=== PATIENT | male | born 1990 | race Caucasian/White ===

== ENCOUNTER 2018-02-05 08:45 | Inpatient (IN) ==
[2018-02-05] MEDS ORDERED: lamoTRIgine 100 MG TABLET PO SCH (11:00)
[2018-02-05] MEDS ORDERED: (Vilazodone Hcl [Viibryd] 40 MG) PO SCH (11:00)
--- NOTE | 2018-02-05 11:04 | Spine - History & Physical Rep ---
Date of Encounter: 02/05/18 Time of Encounter: 11:00 Assessment and Plan (1) Spinal cord compression Current visit: Yes Status: Chronic On exam he communicates clearly and satisfactorily and appears to understand questioning and requests. He is here with his machine ceramic coater whose assisting in the medical history. Afebrile vital signs stable. He fires all upper extremity motor groups with good strength. He has hand deformity on the left. He has a positive Krystle sign on the right. He has a positive inverted radial reflex. He has some weakness in dorsiflexion bilaterally. There is also some quadriceps and hamstring weakness which is 4 on a motor scale. He has no clonus. Lungs are clear. Cardiovascular regular rate and rhythm. Abdomen soft nontender nondistended. There is no clubbing cyanosis or edema. MRI of the cervical spine dated 01/30/2018 reveals multilevel degenerative changes and disc desiccation. There is severe stenosis in part due to disc osteophyte complexes at C5-6 and C6-7. This is causing spinal cord compression with essentially complete myelographic block. Impression: 1) spinal cord compression 2) severe cervical stenosis 3) cervical myelopathy 4) impaired gait Plan: Due to his progressive functional decline and neurologic abnormalities as well as likelihood for neurologic progression I find it reasonable to consider surgery in the form of a anterior cervical decompression and fusion C5-C7. Patient will be admitted due to his rapid functional decline, medically optimized, and we will proceed with surgical decompression. Risks benefits possible complications and alternatives were discussed and the patient would like to proceed. (2) Cervical stenosis of spinal canal Current visit: Yes Status: Chronic (3) Cervical myelopathy Current visit: Yes Status: Chronic (4) Gait disturbance Current visit: Yes Status: Chronic History of Present Illness Chief complaint: "falling, cant walk very well" HPI: Mr. John is a 27 year old male who complains of a one-month history of progressive weakness and increasing frequency of falls. He has a history of COPD but was highly functional working as a job in getting around well. He is now progress to frequent falls and is using a wheelchair to mobilize. His caretakers noticed his worsening function and brought him in for evaluation to sports medicine. He had an MRI which showed spinal cord compression and severe stenosis and was referred to spinal surgery for definitive management. He is here with his machine ceramic coater who is concerned about his functional decline. Patient also complains of pain in the bilateral upper extremities and numbness in his hands bilaterally. He denies any fevers or chills. Past Med Surg Social Fam HX - Past Medical History Medical history: seizures Additional medical history: CP - Past Surgical History Additional surgical history: eye surgery - Social History Smoking Status: Current every day smoker Packs per day: 1 Smokeless Tobacco Status: Yes (vape) Alcohol use: none Drug use: none Medications and Allergies Baclofen 20 mg PO TID 02/05/18 [History] Meloxicam [Mobic] 15 mg PO DAILY 02/05/18 [History] Vilazodone HCl [Viibryd] 40 mg PO DAILY 02/05/18 [History] lamoTRIgine [Lamotrigine] 200 mg PO DAILY 02/05/18 [History] Allergy/AdvReac Type Severity Reaction Status Date / Time No Known Allergies Allergy Verified 02/05/18 09:54 Results - Labs Labs: All other labs normal.
[2018-02-05 11:43] LABS: Basophils % 0.2 %; Eosinophils # 0.1 K/mcL (0.0-0.6); Eosinophils % 0.7 %; Hematocrit 41.2 % (37.5-50.1); Hemoglobin 13.6 g/dL (12.9-16.9); Immature Granulocytes % 0.5 % (0-4); Lymphocytes # 2.6 K/mcL (0.6-4.6); Lymphocytes % 23.6 %; Mean Corpuscular Hemoglobin 29.8 pg (28.0-33.3); Mean Corpuscular Volume 90.4 fL (83.0-100.0); Mean Platelet Volume 11.8 fL (9.4-12.4); Monocytes # 0.5 K/mcL (0.0-1.3); Monocytes % 4.9 %; Neutrophils # 7.7 K/mcL (1.6-8.9); Platelet Count 213 K/mcL (140-400); Red Blood Count 4.56 M/mcL (4.19-5.50); Red Cell Distribution Width 13.2 % (11.5-14.5); Segmented Neutrophils % 70.1 %
[2018-02-05 11:53] LABS: Prothrombin Time 11.1 Seconds (9.4-12.1)
[2018-02-05 11:58] LABS: BUN/Creatinine Ratio 24 (6-26); Blood Urea Nitrogen 19 mg/dL (6-20); Calcium 8.8 mg/dL (8.6-10.3); Carbon Dioxide 27 mEq/L (23-29); Chloride 106 mEq/L (98-107); Glucose 151 mg/dL (70-105); Osmolality,Calculated 297 (280-300); Potassium 3.3 mEq/L (3.5-5.1); Sodium 141 mEq/L (136-145); eGFR For Non-African Americans > 60 (> 60)
[2018-02-05] MEDS: Baclofen 10 MG TABLET PO SCH ×3 (12:35→20:44)
[2018-02-05] MEDS: lamoTRIgine 100 MG TABLET PO SCH (20:44)
[2018-02-05] MEDS: (Vilazodone Hcl [Viibryd] 40 MG) PO SCH (20:53)
[2018-02-06] MEDS: Baclofen 10 MG TABLET PO SCH ×3 (07:58→21:49)
--- NOTE | 2018-02-06 11:00 | Orthopedics Progress Note ---
Date of Encounter: 02/06/18 Time of Encounter: 11:30 - Assessment and Plan (1) Spinal cord compression Current Visit: Yes Status: Chronic (2) Cervical myelopathy Current Visit: Yes Status: Chronic (3) Cervical stenosis of spinal canal Current Visit: Yes Status: Chronic (4) Gait disturbance Current Visit: Yes Status: Chronic Subjective Principal diagnosis: difficulty walking Interval history: Patient present and preparing for cervical surgery tomorrow with Dr. Zuniga. Patient denies any new complaints or concerns regarding surgery. Resting comfortably in bed sleeping. Easily awoken. A&Ox3. Difficulty with coordination in all limbs. Pulses intact all limbs (radial and posterior tibial pulses). Sensation intact. NPO at midnight. Surgery tomorrow with Dr. Zuniga. Laboratory Last Values WBC 11.0 K/mcL (4.3-11.1) 02/05/18 11:22 RBC 4.56 M/mcL (4.19-5.50) 02/05/18 11:22 Hgb 13.6 g/dL (12.9-16.9) 02/05/18 11:22 Hct 41.2 % (37.5-50.1) 02/05/18 11:22 MCV 90.4 fL (83.0-100.0) 02/05/18 11:22 MCH 29.8 pg (28.0-33.3) 02/05/18 11:22 MCHC 33.0 g/dL (31.6-35.5) 02/05/18 11:22 RDW 13.2 % (11.5-14.5) 02/05/18 11:22 Plt Count 213 K/mcL (140-400) 02/05/18 11:22 MPV 11.8 fL (9.4-12.4) 02/05/18 11:22 Immature Gran % 0.5 % (0-4) 02/05/18 11:22 Seg Neutrophils % 70.1 % 02/05/18 11:22 Lymphocytes % 23.6 % 02/05/18 11:22 Monocytes % 4.9 % 02/05/18 11:22 Eosinophils % 0.7 % 02/05/18 11:22 Basophils % 0.2 % 02/05/18 11:22 Neutrophils # 7.7 K/mcL (1.6-8.9) 02/05/18 11:22 Lymphocytes # 2.6 K/mcL (0.6-4.6) 02/05/18 11:22 Monocytes # 0.5 K/mcL (0.0-1.3) 02/05/18 11:22 Eosinophils # 0.1 K/mcL (0.0-0.6) 02/05/18 11:22 Basophils # 0.0 K/mcL (0.0-0.2) 02/05/18 11:22 PT 11.1 Seconds (9.4-12.1) 02/05/18 11:22 INR 1.0 02/05/18 11:22 APTT 33.6 Seconds (26.0-36.0) 02/05/18 11:22 Sodium 141 mEq/L (136-145) 02/05/18 11:22 Potassium 3.3 mEq/L (3.5-5.1) L 02/05/18 11:22 Chloride 106 mEq/L (98-107) 02/05/18 11:22 Carbon Dioxide 27 mEq/L (23-29) 02/05/18 11:22 BUN 19 mg/dL (6-20) 02/05/18 11:22 Creatinine 0.78 mg/dL (0.70-1.30) 02/05/18 11:22 Est GFR ( Amer) > 60 (> 60) 02/05/18 11:22 Est GFR (Non-Af Amer) > 60 (> 60) 02/05/18 11:22 BUN/Creatinine Ratio 24 (6-26) 02/05/18 11:22 Glucose 151 mg/dL (70-105) H 02/05/18 11:22 Calculated Osmolality 297 (280-300) 02/05/18 11:22 Calcium 8.8 mg/dL (8.6-10.3) 02/05/18 11:22 Vital Signs (72 hours) 02/05/18 10:18 02/05/18 21:11 02/05/18 23:23 Temperature 98.1 F 98.1 F 98.0 F Pulse Rate 61 57 55 Respiratory Rate 14 15 15 Blood Pressure 107/69 93/52 98/62 O2 Sat by Pulse Oximetry 96 96 96 02/06/18 04:12 02/06/18 07:21 02/06/18 11:49 Temperature 98.2 F 97.8 F 97.7 F Pulse Rate 61 53 51 Respiratory Rate 16 16 16 Blood Pressure 106/66 96/62 93/51 O2 Sat by Pulse Oximetry 96 92 97 02/06/18 16:25 Temperature 98.1 F Pulse Rate 51 Respiratory Rate 16 Blood Pressure 99/60 O2 Sat by Pulse Oximetry 94 Objective Vital signs: Vital Signs Temp Pulse Resp BP Pulse Ox 02/06/18 07:21 97.8 F 53 16 96/62 92 02/06/18 04:12 98.2 F 61 16 106/66 96 02/05/18 23:23 98.0 F 55 15 98/62 96 02/05/18 21:11 98.1 F 57 15 93/52 96 Intake and Output 02/05/18 02/06/18 02/06/18 23:59 07:59 15:59 Intake Total 290 / 290 240 / 240 Output Total 0 / 0 Balance 290 / 290 240 / 240 Intake: Oral 290 / 290 240 / 240 Output: Urine 0 / 0 Other: Meal Dinner Percent of Meal Consumed 85% # Voids 1 Weight 79.1 kg - Labs CBC & BMP: 02/05/18 11:22 02/05/18 11:22 Labs: Abnormal lab results Potassium 3.3 mEq/L (3.5-5.1) L 02/05/18 11:22 Glucose 151 mg/dL (70-105) H 02/05/18 11:22 Consult Discharge Plan - Plan Referrals: NONE,PCP [Primary Care Provider] -
--- NOTE | 2018-02-06 20:46 | Anesthesia Evaluation PreOp ---
Date of Encounter: 02/06/18 Time of Encounter: 21:33 - Past History Planned Operation: ACDF C5-C7 Cardiac History: Denies any Significant Hx Pulmonary History: Smoker, COPD (MILD) INTAKE ASSESSOR History: Seizures, Paresis (PROGRESSIVE RUSS LE WEAKNESS OVER LAST MONTH. PREVIOUSLY AMBULATORY, AND EMPLOYED AT [employer]), Other (CEREBRAL PALSY) Other Medical History: Denies Any Significant HX Anesthesia History: Past Anesthesia, Problems (WAKES UP VIOLENT) Alcohol Use: none Drug use: none Medications and Allergies Baclofen 20 mg PO TID 02/05/18 [History] Meloxicam [Mobic] 15 mg PO DAILY 02/05/18 [History] Vilazodone HCl [Viibryd] 40 mg PO DAILY 02/05/18 [History] lamoTRIgine [Lamotrigine] 200 mg PO DAILY 02/05/18 [History] Allergy/AdvReac Type Severity Reaction Status Date / Time No Known Allergies Allergy Verified 02/05/18 09:54 - Meds/Allergy Pre-op Review Medications Reviewed: Yes Allergies Reviewed: Yes Beta Blockers on Current Med List: No Anesthesia Results - Labs 02/05/18 11:22 02/05/18 11:22 Laboratory Tests 02/05/18 02/05/18 02/05/18 11:22 11:22 11:22 PT 11.1 INR 1.0 APTT 33.6 Est GFR (Non-Af Amer) > 60 Calcium 8.8 - Imaging Additional studies: MRI CERVICAL SPINE 01/30/2018: 1. Severe spinal canal stenosis at C5-6 secondary to a focal 5 mm right paracentral disc protrusion. There is severe right neural foraminal narrowing as well. 2. Severe spinal canal stenosis at C6-7 secondary to a focal 4 mm central disc protrusion. 3. Intramedullary signal abnormality within the cervical spinal cord at C5-6 and C6-7 likely due to compressive edema. Neurosurgical consultation is suggested. Anesthesia Exam Vital Signs/O2 Sat, Most Current Temp Pulse Resp BP Pulse Ox 98.5 F 61 16 102/68 96 02/06/18 19:42 02/06/18 19:42 02/06/18 19:42 02/06/18 19:42 02/06/18 19:42 Weight: 79 KG - BMI 29 NPO (# of Hours): NPO >MN - HEENT Mallampati: I (HIGH ARCH HARD PALATE, FULL NECK EXTENSION WITHOUT SYMPTOMS) Teeth: Missing Oral Opening: Greater than 3 - INTAKE ASSESSOR LOC: Oriented INTAKE ASSESSOR Motor: Deficit RUE (4/5), Deficit LUE (3/5), Deficit RLE (4/5), Deficit LLE (3/5) - Cardiac Rhythm: Regular - Pulmonary Breath Sounds: bilateral Clear Respiratory Effort: Symmetrical Anesthesia Assess/Plan ASA Score: 3 Anesthetic Plan: General Monitoring Plan: Standard Monitors Recovery Plan: PACU Anes Supervising Prov Stmt: HYPOKALEMIA - ORDERED PO REPLACEMENT AND RECHECK K IN AM Patient informed and consented. Risks, benefits, and alternatives discussed. Patient wishes to proceed.
[2018-02-06] MEDS: lamoTRIgine 100 MG TABLET PO SCH (21:49)
[2018-02-06] MEDS: (Vilazodone Hcl [Viibryd] 40 MG) PO SCH (21:51)
[2018-02-07 07:26] LABS: Hematocrit 41.4 % (37.5-50.1); Hemoglobin 13.6 g/dL (12.9-16.9); Mean Corpuscular HGB Conc 32.9 g/dL (31.6-35.5); Mean Corpuscular Hemoglobin 29.5 pg (28.0-33.3); Mean Corpuscular Volume 89.8 fL (83.0-100.0); Mean Platelet Volume 11.8 fL (9.4-12.4); Platelet Count 188 K/mcL (140-400); Red Blood Count 4.61 M/mcL (4.19-5.50); Red Cell Distribution Width 12.8 % (11.5-14.5)
[2018-02-07 07:42] LABS: BUN/Creatinine Ratio 22 (6-26); Blood Urea Nitrogen 18 mg/dL (6-20); Carbon Dioxide 26 mEq/L (23-29); Chloride 108 mEq/L (98-107); Glucose 99 mg/dL (70-105); Osmolality,Calculated 292 (280-300); Sodium 140 mEq/L (136-145); eGFR For Non-African Americans > 60 (> 60)
[2018-02-07] MEDS: Baclofen 10 MG TABLET PO SCH ×2 (08:10→18:33)
[2018-02-07] MEDS ORDERED: *HR* Midazolam HCl 2 MG/2 ML VIAL ONE (09:21)
[2018-02-07] MEDS ORDERED: *HR* FentaNYL (PF) 100 MCG/2 ML VIAL ONE (09:21)
[2018-02-07] MEDS ORDERED: *HR* Propofol 200 MG/20 ML VIAL IVP ONE (09:21)
[2018-02-07] MEDS ORDERED: Acetaminophen IV 1,000 MG/100 ML INFUS..BTL ONE (09:41)
[2018-02-07] MEDS ORDERED: *HR* Remifentanil 1 MG VIAL IVP ONE (09:45)
[2018-02-07] MEDS ORDERED: Bacitracin 50,000 UNIT, Polymyxin B Sulfate 500,000 UNIT, Sodium Chloride IRRigation 1,... IR ONE (09:55)
[2018-02-07] MEDS ORDERED: EPHEDrine 50 MG/ML VIAL ONE (10:34)
[2018-02-07] MEDS ORDERED: *HR* HYDROmorphone (PF) 1 MG/ML SYRINGE IVP PRN (10:50)
[2018-02-07] MEDS ORDERED: *HR* Promethazine 25 MG/ML VIAL IVP PRN (10:50)
[2018-02-07] MEDS ORDERED: *HR* OxyCODONE Immed Rel 5 MG TABLET PO PRN ×2 (10:50→12:50)
[2018-02-07] MEDS ORDERED: Albuterol 2.5 MG/3 ML NEBULIZER IH ONE (10:50)
[2018-02-07] MEDS ORDERED: *HR* Succinylcholine 200 MG/10 ML VIAL IVP ONE (12:16)
[2018-02-07] MEDS ORDERED: Dexamethasone 4 MG/ML VIAL ONE (12:18)
[2018-02-07] MEDS ORDERED: Ondansetron 4 MG/2 ML VIAL ONE (12:18)
[2018-02-07] MEDS ORDERED: Lidocaine -MPF 2% 2 ML VIAL ONE (12:18)
[2018-02-07] MEDS ORDERED: Propofol 500 MG/50 ML INFUS..BTL ONE ×2 (12:19)
[2018-02-07] MEDS ORDERED: *HR* HYDROmorphone 2 MG/ML SYRINGE ONE (12:26)
--- NOTE | 2018-02-07 12:48 | Orthopedic Operative Note ---
Date of procedure: 02/07/18 Pre-op diagnosis: Cervical stenosis, cervical myelopathy Post-op diagnosis: same Operation/Findings: Anterior cervical decompression and fusion C5-C7: The patient was brought to the operating room and placed supine on the operating room table. Successful general endotracheal anesthesia intubation was performed. Neurophysiologic monitoring personnel placed leads on the upper and lower extremities as well as the cranium for EMG monitoring purposes. Appropriate baseline potentials were noted by the neurophysiologic monitoring staff. Longoria catheter was placed prior to positioning. Compression boots and stockings were placed for deep vein throm bosis prophylaxis. Padding was also placed all bony prominences including the ulnar nerve near the medial epicondyles of the elbows were appropriately padded. Mild traction was placed on the bilateral shoulders and taped into place. Preoperative antibiotics were administered. The area from the mandible bilaterally to the upper thoraces was prepped and draped in the usual sterile fashion. A transverse incision was made at the level of the cricoid cartilage which is approximately 3 cm in length and extended from the midline of the cervical spine laterally towards the sternocleidomastoid muscle on the left. We then performed standard medial approach to the carotid sheath. Sponges were used to tease the fascial medial to the sternocleidomastoid muscle while carefully controlling and palpating the carotid artery. Using careful dissection we were able to get to the level of the anterior vertebral bodies and longus coli muscles. The spinal needle was placed at the appropriate C6-7 le mindy, and intraoperative radiograph was obtained which was a cervical spine lateral radiograph. The needle and radiograph confirmed we were at the correct operative level. We further exposed this C6-7 level by using Bovie cautery under the medial edge of the longus colli muscles to allow them to be retracted approximately 2 mm laterally on each side. An 11 blade was used to perform anterior discectomy at the appropriate level after an initial annulotomy of the anterior longitudinal ligament and annulus was performed. Further disc material was removed with pituitary Rongeurs. Subsequently, Synthes pins were placed at the C6 and C7 vertebral bodies respectively to provide distraction. We then used a Trimline cervical retractor which was placed in both medial and lateral as well as inferior superior direction to allow full visualization of the appropriate C6-7 disc and C6 and C7 vertebral bodies. The Leica microscope was brought to the field and the remainder of the procedure was performed under the guidance of this microscope. Using pituitary rongeurs and small curettes, various micro-instruments, a full discectomy was performed at the appropriate C6-C7 level. The posterior longitudinal ligament was encountered and appeared partially calcified. A portion of this ligament was removed. After complete and thorough discectomy and removal of spondylitic material was performed the endplates of the C6 and C7 vertebral bodies were prepared with a bur until allow bleeding of cancellous bone. A 8mm trial graft was evaluated and appeared to fit quite well within the excised C6-7 disc space. A cortico-cancellous allograft of 8 mm was utilized, carefully tapped into place within the excised disc space with the aid of a bone tamp. It was seated approximately 2 mm from the anterior edge of the cortex of the adjacent vertebral bodies. We then turned our attention to the C5-6 level where a similar series of procedures was performed including discectomy, removal of spondylitic material, end plate preparation, and trial grafting. An 8mm trial fit well within the C5-6 disc space. A 8 mm allograft was then placed at C5-6. A 42.5 mm cervical plate was then placed on the anterior aspect of the C5, C6, and C7 vertebral bodies. The plate was placed in the midline position after drilling six 13 mm self tapping screws and inserting them. They were locked in place using standard Venture plate maneuvers. At this point a lateral radiograph of the cervical spine was obtained and showed satisfactory position of the graft and plate. The wound was copiously irrigated and bleeders encountered were cauterized using Bovie cautery. Platysma was closed with interrupted 2-0 Vicryl sutures. Running 3-0 Monocryl suture was used for skin closure. Sterile dressing was placed over the neck wound. A cervical collar was placed. The patient was transferred to a hospital bed and extubated. The patient was noted to be fully motor and sensory intact in the recovery room at the end of the procedure. The medications. All sponge instrument and needle counts were correct at the end of the procedure. Anesthesia: GETA Surgeon: Walter Zuniga Jr Was there an sales assistants and salespersons present: No Estimated blood loss (cc): 20 Specimen: none Condition: stable Disposition: PACU
[2018-02-07] MEDS ORDERED: Naloxone 0.4 MG/ML INJ IVP PRN ×2 (12:50→20:25)
[2018-02-07] MEDS ORDERED: Acetaminophen 325 MG TABLET PO PRN ×2 (12:50→20:21)
[2018-02-07] MEDS ORDERED: *HR* HYDROcodone/Acet 5/325 mg TABLET PO PRN (12:50)
[2018-02-07] MEDS ORDERED: Ondansetron 4 MG/2 ML VIAL IVP PRN ×2 (12:50→20:25)
[2018-02-07] MEDS ORDERED: *HR* HYDROmorphone (PF) 1 MG/ML SYRINGE ONE (12:52)
[2018-02-07] MEDS ORDERED: Ringers Solution, Lactated 1,000 ML IVC SCH ×2 (13:00→20:30)
--- NOTE | 2018-02-07 13:25 | Anesthesia Evaluation Post Op ---
Date of Encounter: 02/07/18 Time of Encounter: 13:24 - Vital Signs Vital Signs: Vital Signs/O2 Sat, Most Current Temp Pulse Resp BP Pulse Ox 98.0 F 98 15 139/78 92 02/07/18 12:55 02/07/18 13:15 02/07/18 13:15 02/07/18 13:15 02/07/18 13:15 - Lungs Lungs: Clear Ascult./Percussion - Airway Airway: Non-obstructed - Cardiovascular Regular Rate - Mental Status Mental Status: Alert & Oriented, Answers Appropriately - Pain Pain Scale: 0 Pain Scale used: Numeric (1 - 10) - Nausea Vomiting Nausea Vomiting: Not Present - Hydration Hydration: Ice chips, Longoria catheter - Discharge PostOp Status: Transfer Patient to floor
[2018-02-07] MEDS: *HR* HYDROcodone/Acet 5/325 mg TABLET PO PRN (16:24)
[2018-02-07] MEDS: lamoTRIgine 100 MG TABLET PO SCH (18:33)
[2018-02-07] MEDS: ceFAZolin 1,000 MG in Water for inj. (sterile) 20 ML 10 ML IVP SCH (18:37)
[2018-02-07] MEDS: *HR* OxyCODONE Immed Rel 5 MG TABLET PO PRN (21:43)
[2018-02-08] MEDS: ceFAZolin 1,000 MG in Water for inj. (sterile) 20 ML 10 ML IVP SCH (01:30)
[2018-02-08] MEDS: *HR* OxyCODONE Immed Rel 5 MG TABLET PO PRN ×3 (01:32→10:09)
[2018-02-08] MEDS: Baclofen 10 MG TABLET PO SCH (01:33)
[2018-02-08] MEDS ORDERED: Ringers Solution, Lactated 1,000 ML IVC SCH (05:15)
[2018-02-08] MEDS: *HR* HYDROcodone/Acet 5/325 mg TABLET PO PRN (07:07)
--- NOTE | 2018-02-08 09:05 | Discharge Summary ---
Date of Encounter: 02/08/18 Time of Encounter: 11:00 - Discharge Diagnosis (1) Spinal cord compression Priority: Primary Status: Chronic (2) Cervical myelopathy Priority: Primary Status: Chronic (3) Cervical stenosis of spinal canal Priority: Primary Status: Chronic (4) Gait disturbance Priority: Primary Status: Chronic (5) Status post cervical spinal fusion Priority: Primary Status: Acute - Hospital Course Hospital course: Mr. John is a 27 year old male Date of procedure: 02/07/18 Pre-op diagnosis: Cervical stenosis, cervical myelopathy Post-op diagnosis: same Operation/Findings: Anterior cervical decompression and fusion C5-C7 Patient resting comfortably in bed. Alert and oriented x 3. Patient doing well with improvement of limb function since surgery. Awaiting ambulation secondary to delay in receiving neck brace. ROM upper extremities to shoulder level wnl. Hip, knee, ankle ROM intact. Neurovascularly intact to all extremities. Incision c/d/i. Xray reveals: XR/XR cervical spine 2V IMPRESSION: Postsurgical changes of anterior cervical fusion at C5 through C7. Small amount of prevertebral soft tissue swelling may be postsurgical. Small amount of soft tissue gas may be postsurgical. Visualized cervical hardware appears in appropriate position. No evidence of acute osseous abnormalities. D/ / 02/08/2018 10:32:22 Grupreet Fox MD / nj Leave steri-strips in place. Do not shave around incision Wear collar with all activity No lifting greater than 5-10lbs. Avoid NSAIDs and tobacco products Discussed appropriate pain medication use. Patient verbalized understanding and agreement with plan. Keep outpatient follow up as scheduled. Time spent discussing smoking cessation with patient: 3 to 10 minutes (Patient states he vapes more than smokes anymore. Encouraged decreased and eventual discontinuation. Patient verbalized understanding.) - Time Spent with Patient Total time spent providing and/or coordinating discharge services: - Discharge Medications Prescriptions: RX: Docusate [Colace] 100 mg PO BID 5 Days #10 capsule RX: OxyCODONE Immed Rel [Roxicodone 5 MG] 5 mg PO Q6H PRN 7 Days #28 tablet PRN Reason: Severe Pain Home Medications: RX: Baclofen 20 mg PO TID 02/05/18 [History] RX: Vilazodone HCl [Viibryd] 40 mg PO DAILY 02/05/18 [History] RX: lamoTRIgine [Lamotrigine] 200 mg PO DAILY 02/05/18 [History] RX: Acetaminophen [Tylenol] 650 mg PO Q6HR PRN tablet 02/08/18 [Rx] RX: Docusate [Colace] 100 mg PO BID 5 Days #10 capsule 02/08/18 [Rx] RX: OxyCODONE Immed Rel [Roxicodone 5 MG] 5 mg PO Q6H PRN 7 Days #28 tablet 02/08/18 [Rx] RX: Patient Taking Own Medication 0 each PO DAILY each 02/08/18 [Rx] Allergies/Adverse Reactions: Allergy/AdvReac Type Severity Reaction Status Date / Time No Known Allergies Allergy Verified 02/05/18 09:54 Date of admission: 02/05/18 09:36 Primary care physician: PCP NONE Consults: 02/08/18 05:18 Consult to Occupational Therapy [CONS] Routine Comment: Evaluate, develop and implement POC Reason for Consult: Post op ACDF Does patient have active BEDREST order?: No Is patient medically & hemodynamically stable?: Yes Consult to Physical Therapy [CONS] Routine Comment: Evaluate, develop and implement POC Reason for Consult: Post op ACDF Does patient have active BEDREST order?: No Is patient medically & hemodynamically stable?: Yes Consult to Embedded Linux Developer [CONS] Routine Reason for SW Consult: Post op ACDF Consult to Spine Navigator [CONS] [CONS] Routine Discharging clinician: Walter Zuniga Jr Anticipated date of discharge: 02/08/18 - Impressions ITS Impressions Cervical Spine X-Ray 02/07/18 00:00 IMPRESSION: 1. Status post anterior cervical spinal fusion between C5 and C7 with no immediate complications. D/ / Francesco Mendoza MD / Francesco Mendoza MD Interpreting Provider: Francesco Mendoza MD Cervical Spine X-Ray 02/07/18 10:58 IMPRESSION: Intraoperative imaging as above described. Findings were discussed with Walter Zuniga at 11:16 am on 02/07/2018. D/ / Josh Donato MD / Josh Donato MD Interpreting Provider: Josh Donato MD - Patient Status Disposition: Home, Self-Care Condition: Good Functional capacity at discharge: uses cane/walker Overall status at discharge: patient is progressing back to baseline - Discharge Instructions Follow Up With: NONE,PCP [Primary Care Provider] - Additional Instructions: Discharge Instructions: Cervical Please call [facility] ([phone]), your Primary Care Physician, or report to the ER if you have any of the following symptoms: Fever greater that 101.5, increased pain/redness/drainage/odor for your incision site or any other concerning symptoms. ACTIVITY * May Shower * No Tub Baths * No Smoking * No Swimming * No Driving * Wear Collar when up walking * Incentive Spirometer 10 times an hour MEDICATIONS: Upon discharge resume your home medications. Take all the medications as prescribed. Take a stool softener if taking narcotic pain medic ations. Stool softeners are only effective if you drink enough fluids. Drink 6-8 glass of water or fluids a day, unless this is not allowed for another health problem. Despite using stool softeners, if you haven't had a bowel movement in 3 days, please switch to a gentle laxative. Gentle laxatives are sold over the counter. You should have a bowel movement within 24 hours, if not call the office. You will be discharged from the hospital with a prescription for pain medication. You are encouraged to decrease the use of narcotic pain medication as tolerated. Should you require a refill, please call the office. It is best to call 48-72 hours in advance of needing a prescription refill so you don't run out of medication. WOUND CARE: Leave steri-strips in place until they fall off on their own. Pat dry when you get out of the shower. FOLLOW-UP: Please follow up with your surgeon in the orthopedic clinic in 2 weeks from the day of surgery. References: [employer] [place] [employer] (www.[email or web address].org) - Diet and Activity Activity: as per physical therapy Diet: advance to your usual diet
[2018-02-08] MEDS: lamoTRIgine 100 MG TABLET PO SCH (09:35)
[2018-02-08 10:16] VITALS: BP 136/78
[2018-02-08] MEDS ORDERED: ceFAZolin 1,000 MG in Water for inj. (sterile) 20 ML 10 ML IVP SCH (16:00)
== END 2018-02-08 15:14 | disposition home or self-care (01) | DRG 472 ==
LOC: 3NENU 09:36
PROVIDERS: ADMIT Orthopaedic Surgery Orthopaedic Surgery of the Spine; ATTEND Orthopaedic Surgery Orthopaedic Surgery of the Spine